=== PATIENT | male | born 1975 | race Caucasian/White ===

== ENCOUNTER 2018-06-05 22:47 | Observation (INO) | payer OTHER ==
[~2018-06-05] VITALS: Ht 177.8 cm; Wt 95.0 kg
[~2018-06-05 22:47] MED LIST: BACTRIM DS1 TAB PO; CEPHALEXIN500 MG PO; CLONAZEPAM2 MG PO; DOXYCYCL HYC100 MG PO; HYDROCO/APAP1 TA9 PO; KEFLEX500 M1 PO; LISINOPRIL10 MG PO; LORTAB 10 PO; LORTAB 7.5-3251 TAB PO; NAPROSYN500 MG PO; PERCOCET 5/325M1 TAB PO; ROCEPHIN 1 GM1 GM IV; SOMA CPD PO; ULTRAM50 M1 PO
[2018-06-05 23:14] LABS: HEMATOCRIT 40.4 % (39.0-50.0); HEMOGLOBIN 13.7 g/dl (14.0-18.0); IMMATURE GRANULOCYTES 0.5 % (0.0-1.0); MEAN CELL VOLUME 91.4 fL CALC (80.0-100.0); MEAN CORPUSCULAR HGB CONC 33.9 g/L CALC (32.0-36.0); NEUT# 6.1 thou/uL (1.82-7.42); RED BLOOD COUNT 4.42 mill/uL (4.70-6.10); RED CELL DISTRI WIDTH 11.9 % (11.5-15.5)
[2018-06-05 23:15] LABS: URINE BILIRUBIN - DIPSTICK NEGATIVE (NEGATIVE); URINE BLOOD DIPSTICK NEGATIVE (NEGATIVE); URINE COLOR YELLOW; URINE GLUCOSE - DIPSTICK NEGATIVE (NEGATIVE); URINE KETONE NEGATIVE (NEGATIVE); URINE LEUK ESTERASE NEGATIVE (NEGATIVE); URINE NITRITE - DIPSTICK NEGATIVE (Negative); URINE PROTEIN - DIPSTICK TRACE mg/dL (NEG-TRACE); URINE SPECIFIC GRAVITY >=1.030; URINE UROBILINOGEN - DIPSTICK 0.2 E.U./dL (0.2)
[2018-06-05 23:19] LABS: URINE CLARITY CLEAR
[2018-06-05 23:20] LABS: BARBITURATES NEGATIVE (NEGATIVE); COCAINE NEGATIVE (NEGATIVE); METHADONE NEGATIVE (NEGATIVE); TETRAHYDROCANNABIONOL NEGATIVE (NEGATIVE); TRICYLIC ANTIDEPRESSANTS NEGATIVE (NEGATIVE)
[2018-06-05 23:21] LABS: OXCYCODONE POSITIVE (NEGATIVE)
[2018-06-05 23:26] LABS: ALBUMIN 3.9 g/dL (3.2-5.0); ALKALINE PHOSPHATASE 96 u/l (38-126); ANION GAP 11 (6-22 (CALC)); BILIRUBIN, TOTAL 0.3 mg/dL (0.0-1.4); BUN 12 mg/dL (9-20); BUN/CREATININE RATIO 13 (12-20 (CALC)); CARBON DIOXIDE 25 mmol/l (22-30); CHLORIDE 105 mmol/l (95-108); CREATININE 0.9 mg/dL (0.7-1.3); ETHYL ALCOHOL 0 mg/dl (0-30); GFR > 60 ML/MIN (>=60 (CALC)); GFR FOR AFR.AMER. > 60 ML/MIN (>=60 (CALC)); SGOT/AST 17 u/l (17-59); SGPT/ALT 27 u/l (21-72); SODIUM 138 mmol/l (137-146); TOTAL PROTEIN 6.9 g/dL (6.3-8.2)
[2018-06-05 23:37] LABS: MYOGLOBIN 96 ng/mL (0 - 121)
[2018-06-06 02:09] VITALS: BP 133/91
[2018-06-06 07:59] VITALS: BP 154/90
[2018-06-06 11:30] VITALS: BP 132/69
[2018-06-06 16:24] VITALS: BP 130/79
[2018-06-06] MEDS ORDERED: ONDANSETRON4 MG/2 ML IV (16:24)
[2018-06-06] MEDS ORDERED: HYDROXYZINE PAM25 MG PO (16:24)
== END 2018-06-06 18:00 | DRG 897 ==
LOC: ED 22:47 → ED-I 06-06 00:45 → ED 06-06 01:34 → MS2 06-06 01:35
PROVIDERS: Emergency Medicine; ADMIT Internal Medicine; ATTEND Internal Medicine
DX: F11.23 Opioid dependence with withdrawal (principal); F15.93 Other stimulant use, unspecified with withdrawal; F17.210 Nicotine dependence, cigarettes, uncomplicated
CPT/HCPCS: G0378

== ENCOUNTER 2018-10-27 03:00 | Emergency (ER) | payer OTHER ==
[~2018-10-27] VITALS: Ht 177.8 cm; Wt 88.6 kg
[~2018-10-27 03:00] MED LIST changes: +HYDROXYZINE PAM25 MG PO; +ONDANSETRON4 MG/2 ML IV
[2018-10-27] MEDS ORDERED: OXYCONTIN10 MG PO (03:26)
[2018-10-27] MEDS ORDERED: ULTRAM50 M1 PO (05:18)
[2018-10-27] MEDS ORDERED: FLEXERIL PO (05:18)
[2018-10-27 05:25] VITALS: BP 140/90
== END 2018-10-27 05:25 | disposition home or self-care (01) | DRG 563 ==
LOC: ED 03:00
DX: S83.92XA Sprain of unspecified site of left knee, initial encounter (principal); S83.91XA Sprain of unspecified site of right knee, initial encounter; M54.5 Low back pain; F17.210 Nicotine dependence, cigarettes, uncomplicated; V49.50XA Passenger injured in collision with unspecified motor vehicles in traffic accident, initial encounter

== ENCOUNTER 2020-06-03 01:25 | Emergency (ER) | payer OTHER ==
[~2020-06-03] VITALS: Ht 177.8 cm; Wt 86.0 kg
[~2020-06-03 01:25] MED LIST changes: +FLEXERIL PO; +OXYCONTIN10 MG PO
[2020-06-03 01:45] LABS: HEMATOCRIT 43.1 % (39.0-50.0); HEMOGLOBIN 13.9 g/dl (14.0-18.0); IMMATURE GRANULOCYTES 0.3 % (0.0-5.0); MEAN CELL VOLUME 93.1 fL CALC (80.0-100.0); MEAN CORPUSCULAR HGB CONC 32.3 g/dL CAL (32.0-36.0); NEUT# 6.77 thou/uL (1.82-7.42); RED BLOOD COUNT 4.63 mill/uL (4.70-6.10); RED CELL DISTRI WIDTH 11.9 % (11.5-15.5)
[2020-06-03 02:01] LABS: ALBUMIN 4.2 g/dL (3.2-5.0); ALKALINE PHOSPHATASE 121 u/l (38-126); ANION GAP 12 (6-22 (CALC)); BUN 12 mg/dL (9-20); BUN/CREATININE RATIO 13 (12-20 (CALC)); CARBON DIOXIDE 26 mmol/l (22-30); CHLORIDE 100 mmol/l (95-108); CREATININE 0.9 mg/dL (0.7-1.3); ETHYL ALCOHOL 0 mg/dl (0-30); GFR > 60 ML/MIN (>=60 (CALC)); GFR FOR AFR.AMER. > 60 ML/MIN (>=60 (CALC)); POTASSIUM 3.8 mmol/l (3.5-5.1); SODIUM 134 mmol/l (137-146); TOTAL PROTEIN 7.5 g/dL (6.3-8.2)
[2020-06-03 02:03] LABS: BILIRUBIN, TOTAL 0.6 mg/dL (0.0-1.4); SGOT/AST 39 u/l (17-59)
[2020-06-03 02:13] LABS: MYOGLOBIN 73 ng/mL (0 - 121)
[2020-06-03 02:50] LABS: URINE BILIRUBIN - DIPSTICK NEGATIVE (NEGATIVE); URINE BLOOD DIPSTICK NEGATIVE (NEGATIVE); URINE COLOR YELLOW; URINE GLUCOSE - DIPSTICK NEGATIVE (NEGATIVE); URINE KETONE NEGATIVE (NEGATIVE); URINE LEUK ESTERASE NEGATIVE (NEGATIVE); URINE NITRITE - DIPSTICK NEGATIVE (Negative); URINE PROTEIN - DIPSTICK NEGATIVE (NEG-TRACE); URINE SPECIFIC GRAVITY 1.025; URINE UROBILINOGEN - DIPSTICK 0.2 E.U./dL (0.2)
[2020-06-03 03:30] VITALS: BP 150/71
== END 2020-06-03 03:30 | DRG 101 ==
LOC: ED 01:25
PROVIDERS: Emergency Medicine
DX: R56.9 Unspecified convulsions (principal); F19.10 Other psychoactive substance abuse, uncomplicated; F17.200 Nicotine dependence, unspecified, uncomplicated

== ENCOUNTER 2024-08-07 19:28 | Emergency (ER) | payer SELFPAY ==
[~2024-08-07] VITALS: Ht 177.8 cm; Wt 93.0 kg
[2024-08-07] VITALS (8 sets, daily range): BP systolic 141–158; BP diastolic 87–126
[2024-08-07] MEDS ORDERED: KETOROLAC TROMETHAMINE 30 MG/ML SDV IV STA (20:12)
[2024-08-07] MEDS ORDERED: SODIUM CHLORIDE 0.9% 1,000 ML IV STA (20:12)
[2024-08-07 20:35] LABS: BASO% 0.3 % (0-3); EOS% 2.2 % (0-8); HEMATOCRIT 41.8 % (39.0-50.0); HEMOGLOBIN 13.8 g/dl (14.0-18.0); IMMATURE GRANULOCYTES 0.1 % (0.0-5.0); LYMPH% 10.3 % (15-41); MEAN CELL VOLUME 96.3 fL CALC (80.0-100.0); MEAN CORPUSCULAR HGB 31.8 pG CALC (26.0-32.0); MONO% 7.5 % (2-13); NEUT# 9.24 thou/uL (1.82-7.42); NEUT% 79.6 % (42-76); RED BLOOD COUNT 4.34 mill/uL (4.70-6.10); RED CELL DISTRI WIDTH 11.6 % (11.5-15.5)
[2024-08-07 20:35] LABS: URINE BILIRUBIN - DIPSTICK Negative (NEGATIVE); URINE BLOOD DIPSTICK Trace-intact (NEGATIVE); URINE GLUCOSE - DIPSTICK Negative (NEGATIVE); URINE KETONE Negative (NEGATIVE); URINE LEUK ESTERASE Negative (NEGATIVE); URINE NITRITE - DIPSTICK Negative (Negative); URINE PROTEIN - DIPSTICK Negative (NEG-TRACE); URINE UROBILINOGEN - DIPSTICK 0.2 E.U./dL (0.2)
[2024-08-07 20:38] LABS: URINE COLOR Yellow
[2024-08-07 20:46] LABS: ALBUMIN 3.6 g/dL (3.2-5.0); CREATININE 1.3 mg/dL (0.7-1.3); POTASSIUM 3.9 mmol/l (3.5-5.1); TOTAL PROTEIN 6.5 g/dL (6.3-8.2)
[2024-08-07 20:47] LABS: BILIRUBIN, TOTAL 0.3 mg/dL (0.2-1.3)
[2024-08-07] MEDS ORDERED: ZOFRAN4 MG/TAB PO (22:30)
[2024-08-07] MEDS ORDERED: TAMSULOSIN0.4 MG PO (22:30)
[2024-08-07] MEDS ORDERED: TORADOL PO (22:30)
[2024-08-07] MEDS ORDERED: PERCOCET 5/325M1 TAB PO (22:30)
[2024-08-07] MEDS ORDERED: ONDANSETRON HCl 4 MG/2 ML SDV IV ONE (22:40)
[2024-08-07] MEDS ORDERED: MORPHINE SULFATE 4 MG/ML VIAL IV ONE (22:40)
[2024-08-07] MEDS ORDERED: TAMSULOSIN HCL 0.4 MG CAP PO ONE (22:40)
== END 2024-08-07 23:19 | disposition home or self-care (01) | DRG 694 ==
LOC: ED 19:28
PROVIDERS: Emergency Medicine
DX: N20.1 Calculus of ureter (principal); F17.200 Nicotine dependence, unspecified, uncomplicated